=== PATIENT | female | born 1970 | race Caucasian/White ===

== ENCOUNTER 2022-12-01 07:24 | Day surgery (SDC) | payer BC ==
[~2022-12-01] VITALS: Ht 162.6 cm; Wt 96.8 kg
[2022-12-01] MEDS ORDERED: LEXAPRO 10MG10 MG PO (07:47)
[2022-12-01] MEDS ORDERED: ADULT MULTIVIT1 EACH PO (07:48)
[2022-12-01 08:13] VITALS: BP 125/72; PULSE 76; TEMP 97
[2022-12-01 09:30] VITALS: BP 104/69; PULSE 86; TEMP 96.9
--- NOTE | 2022-12-01 09:30 | NUR ---
PATIENT AMBULATED WITH STEADY GAIT TO CHAIR, ALERT AND ORIENTED X4. BREATHING REGULAR AND UNLABORED. SKIN WARM AND DRY. DENIES PAIN, NAUSEA AND SHORTNESS OF BREATH. NURSE HANDOFF COMPLETED IN ROOM. PATIENT HAD A CUP OF WATER AND A MINT. SEE CHART FOR VITAL SIGNS. [facility] IN ROOM.
[2022-12-01 09:45] VITALS: BP 111/74; PULSE 81
[2022-12-01 09:59] VITALS: BP 106/72; PULSE 79
--- NOTE | 2022-12-01 09:59 | NUR ---
DISCHARGE TEACHING COMPLETED WITH PRINTED EDUCATION AND INSTRUCTIONS SENT HOME WITH PATIENT. PATIENT VERBALIZED UNDERSTANDING OF TEACHING. AT 1013, MET WITH PATIENT TO DISCUSS PROCEDURE. PATIENT TOLERATING FOOD AND DRINK, NO NAUSEA. NO PAIN. IV REMOVED. GAUZE AND COBAN DRESSING PLACED OVER IV REMOVAL SITE. [facility]
== END 2022-12-01 10:15 | disposition home or self-care (01) ==
LOC: SDCO 07:24
DX: Z12.11 Encounter for screening for malignant neoplasm of colon (principal); K64.0 First degree hemorrhoids
CPT/HCPCS: J2405; J2704; J7120